=== PATIENT | male | born 1960 | race African-American/Black ===

== ENCOUNTER 2022-08-23 13:35 | Emergency (ER) | payer MEDICARE, MEDICAID ==
[~2022-08-23] VITALS: Ht 177.8 cm; Wt 75.0 kg
[2022-08-23 15:56] VITALS: BP 119/78
== END 2022-08-23 15:57 | disposition home or self-care (01) ==
LOC: ER 13:35
DX: B34.9 Viral infection, unspecified (principal); F12.10 Cannabis abuse, uncomplicated; Z20.822 Contact with and (suspected) exposure to COVID-19
CPT/HCPCS: 87426; 99283; C9803